=== PATIENT | female | born 1990 | race Caucasian/White ===

== ENCOUNTER 2017-11-14 16:58 | Emergency (ER) | payer BC, OTHER ==
--- NOTE | 2017-11-14 17:55 | ED Physician Documentation ---
Upper Respiratory Symptoms - HISTORIAN Historian: patient - HPI Stated Complaint: Sinus drainage/congested/fever Chief Complaint: Upper Respiratory Symptoms Onset: days ago (2) Severity: moderate Associated Symptoms: fever, chills, sore throat, productive cough Further Comments: yes (27 year old female present with cough, body aches, congestion, states both of her children were diagnosed with RSV last week.) - ROS CONST/EYES: denies: weakness CVS/RESP: denies: none LYMPH: denies: leg swelling, rash, swollen glands, ankle swelling GI/: none NEURO/PSYCH: denies: fainting, dizziness, confusion, anxiety, depression, other MS/SKIN: denies: joint pain, muscle aches, rash, other - PAST HX Lung Disease: asthma Allergies/Adverse Reactions: Allergies Allergy/AdvReac Type Severity Reaction Status Date / Time bee pollen Allergy Verified 11/14/17 17:38 latex Allergy Verified 11/14/17 17:35 Home Medications: Ambulatory Orders Medication Instructions Recorded Bisoprolol Fumarate [Zebeta] 11/14/17 Ipratropium/Albuterol Sulfate 3 ml IH PRN PRN 11/14/17 [Duoneb] - SOCIAL HX Smoking History: non-smoker - FAMILY HX Family History: denies: none - VITAL SIGNS Vital Signs: Vital Signs Temp Pulse Resp BP Pulse Ox 97.2 F L 81 16 144/64 97 11/14/17 16:58 11/14/17 16:58 11/14/17 16:58 11/14/17 16:58 11/14/17 16:58 - REVIEWED ASSESSMENTS Nursing Assessment Reviewed: Yes Vitals Reviewed: Yes ED Results Lab/Radiology - Orders Orders: ED Orders Category Date Time Status INFLUENZA A&B Stat Lab 11/14/17 17:34 Ordered Upper Respiratory Symptoms - EXAM General Appearance: mild distress EENT: eyes nml inspection, nml ENT inspection, lids & conjunct. nml, PERRL, ear nml, nose nml, pharynx nml, airway nml Respiratory: no resp. distress, breath sounds nml, no pain on inspiration, speaks full sentences, no pleuritic chest pain, other (cough) Abdomen: non-tender, no organomegaly, nml bowel sounds, no distention CVS: reg rate & rhythm, heart sounds normal, equal pulses, no murmur, no gallop, PMI nml, no JVD, no friction rub, 24 Skin: color nml, no rash, warm,dry Extremities: non-tender, normal range of motion, no evidence of injury, no edema, J, [employer] Neuro/Psych: oriented x3, neuro intact, mood/affect nml, CN's nml as tested Discharge Clincal Impression: Common cold virus Referrals: Primary Doctor,No [Primary Care Provider] - 2 Days Additional Instructions: Treat your symptoms with over the counter medication. 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 You may want to try Vicks rub on your chest and/or feet. (Caution: Dayquil and Nyquil contain 325mg of tyelnol/acetaminophen per tablespoon) Cough drops as needed for cough and sore throat. Increase your fluid intake juices, hot tea, non-caffeinated beverages Vitamin C may be helpful in decreasing the length of your cold. Use a humidifier in the room where you sleep. You can also sit in a steam filled bathroom 1-2 times a day. Tylenol every 4 hours 650mg -1000mg (do not exceed 4000mg in 24 hours) as needed for fever, pain and body aches. Alternate with Ibuprofen Ibuprofen 600-800mg every 6 hours as needed for fever, pain and body aches. See your primary care doctor if your symptoms become worse or do not improve in the next 2-3 days. Condition: Stable Disposition: 01 HOME, SELF-CARE Decision to Admit: NO Decision Time: 17:55
[2017-11-14 18:28] VITALS: BP 122/78
== END 2017-11-14 18:10 | disposition home or self-care (01) ==
LOC: ED 16:58
DX: J02.9 Acute pharyngitis, unspecified (principal)
CPT/HCPCS: 87400

== ENCOUNTER 2018-07-03 09:08 | Outpatient (CLI) | payer OTHER ==
--- NOTE | 2018-07-03 13:36 | Diagnostic Imaging Report ---
SHANDA COHEN [facility] [address] [facility] [address], [place]. [address] Report Submission Date: July 03, 2018 9:38:45 AM CDT Patient Study Name: JASBIR CHACKO Date: July 03, 2018 9:10:19 AM CDT Modality Type: DX Gender: F Description: SHOULDER 2 VIEWS OR MORE : 86 Institution: [facility] Physician: SHANDA COHEN Examination: Plain film right shoulder History: CHRONIC PAIN IN RT SHOULDER SINCE NOVEMBER, NO KNOWN INJURY Comparison exams: None provided Findings: 3 views of the right shoulder demonstrate normal cortical margins. No evidence for fracture or dislocation. No soft tissue abnormality Impression: No acute osseous process. Electronically signed on July 03, 2018 9:38:45 AM CDT by: Caden BLACKMAN
== END 2018-07-03 09:10 ==
LOC: RAD 09:08
PROVIDERS: ATTEND Nurse Practitioner Family
DX: M25.511 Pain in right shoulder (principal)
CPT/HCPCS: 73030